=== PATIENT | female | born 2005 | race Caucasian/White ===

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

== ENCOUNTER 2025-02-15 10:57 | Outpatient (CLI) | payer OTHER, SELFPAY ==
[2025-02-15 14:57] LABS: Hematocrit 39.8 % (37.0-47.0); Hemoglobin 13.4 g/dL (12.2-16.2); Immature Granulocytes % 0.2 %; Mean Corpuscular HGB Conc 33.7 g/dL (31.8-35.4); Mean Corpuscular Hemoglobin 32.0 pg (27.0-31.2); Mean Corpuscular Volume 95.0 fl (81-99); Nucleated Red Blood Cells % 0 %; Platelet Count 329 K/mm3 (142-424); Red Blood Count 4.19 M/mm3 (4.20-5.40); Red Cell Distribution Width-SD 40.2 fL; White Blood Count 6.1 K/mm3 (4.5-13.0)
[2025-02-15 15:40] LABS: Alanine Aminotransferase 13 U/L (12-78); Albumin Level 4.3 g/dl (3.5-5.0); Albumin/Globulin Ratio 1.5 (1.1-1.8); Alkaline Phosphatase 71 U/L (38-126); Anion Gap 11.4 mEq/L (5-15); Aspartate Amino Transferase 22 U/L (14-36); Bilirubin,Total 1.0 mg/dl (0.2-1.3); Blood Urea Nitrogen 9 mg/dl (7-17); Calcium 9.8 mg/dl (8.4-10.2); Carbon Dioxide 24 mmol/L (22.0-30.0); Chloride 107 mmol/L (98-107); Creatinine,Serum 0.80 mg/dl (0.52-1.04); Estimated Glomerular Filt Rate 92 ml/min (>60); GFR (African American) 112 ML/MIN (>60); Globulin 2.8 g/dL (1.3-3.2); Glucose 90 mg/dl (74-100); Potassium 4.4 mmoL/L (3.5-5.1); Sodium 138 mmol/L (136-145); Total Protein,Serum 7.1 g/dl (6.3-8.2)
[2025-02-15 15:58] LABS: 25-OH Vitamin D, Total 30.6 ng/mL (30-100)
[2025-02-15 16:11] LABS: Thyroid Stimulating Hormone 3.71 uIU/mL (0.465-4.68)
[2025-02-15 16:31] LABS: Vitamin B12 258 pg/mL (239-931)
[2025-02-15 16:35] LABS: Hepatitis C Ab Qual. W/ RFX NEGATIVE (Negative)
[2025-02-16 05:21] LABS: Hepatitis B Surface Antigen Negative (Negative)
--- OUTSIDE RECORDS SUMMARY | 2025-02-16 12:05 | XMS_ITS | Clinical Summary ---
Author Organization [facility] Address [address] [place] [id number] Care Team Providers Care Computer Graphics Illustrator Name Role Phone Valentina Smith PA-C Primary Care Provider [phone] Source Comments [facility] is fully rolled out with thefollowing exceptions:[facility] Allergies No known active allergies Medications sertraline (ZOLOFT) 100 MG tabletIndicatio ns:Social anxiety disorder,Modera te episode of recurrent major depressive disorder Take 1.5 tablets (150 mg total) by mouth every evening. 45 tablet 1 04/26/2022 Active busPIRone (BUSPAR) 15 MG tablet Take 1 tablet (15 mg total) by mouth. Active Active Problems Problem Noted Date Diagnosed Date Suicidal behavior 03/21/2022 Moderate episode of recurrent major depressive d isorder 03/20/2022 Social anxiety disorder 09/25/2021 Carotid sinus syndrome 09/25/2021 BMI (body mass index), pedia tric, 5% to less than 85% for age 0903/30/2021 Immunizations Immunization Administration Dates Next Due Diphtheria/Tetanus/Acellular Pertussis 02/17/2009,10/24/2006,2005,2004,2005 Haemophilus B Vaccine 05/06/2006,2005,03/28 Hepatitis A Vaccine 720 Elu 03/13/2018, 8 Hepatitis B vaccine 10 mcg ( ENGERIX) pediatric 05/06/2006,2005,2005,2004 Influenza Vaccine 0.5 mL - f or patients 6 months and older 04/12/2022 Measles/Mumps/Rubella Vaccine 02/17/2009, 007 Menactra Vaccine 03/30/2021,02/23/2016 Pneumococcal 13 Conjugate 05/06/2006,09/2005,2005,2004 Pneumococcal 7 Conjugate 05/06/2006,09/2005,2005,2004 Polio Vaccine Syringe 02/17/2009, 006,2005,2004 Tdap vaccine 02/23/2016 Varicella Virus Vaccine 08/22/2017,05/06/2006 Family History Medical History Relation Name Comments High Cholesterol Maternal Grandmother Hypertension Maternal Grandmother Relation Name Status Comments Maternal Grandmother Alive Social History Tobacco Use Types Packs/Day Years Used Date Smoking Tobacco: Never Smokeless Tobacco: Never Tobacco Cessation:Counseling Given: Not Answered Alcohol Use Standard Drinks/Week Comments No 0 (1 standard drink = 0.6 oz pur e alcohol) Intimate Partner Violence Answer Date R ecorded If you are in a relationship , do you feel safe in that relationship? Yes 03/20/2022 Safe in relationship? (18 and older) Not on file 03/20/2022 Depression Answer Date Recorded Total score 16 04/12/2022 Safety and Environment Answer Date Camacho rded Do you have any concerns of physical abuse, sexual abuse, or neglect of your child? No 03/21/2022 Is an adult hurting you or your family? No 03/21/2022 Has someone ever touched you in a sexual way that was not ok with you? No 03/21/2022 Someone hurting you or family (18 and older) Not on file 03/21/2022 Historical abuse worry Not on file If you have firearms in the home, are they all in locked storage AND unloaded? Not on file 03/21/2022 Adolescent Education and Socialization Answer Date Recorded Grades Are Mostly Not on file 06/10/2022 Supplemental Education Services None 06/10/2022 Getting School Help Needed Not on file 06/10 Suspensions/Expulsions (this academic year) Not on file 06/10/2022 School Absences Not on file 06/10/2022 Peer Relationships Not on file 06/10/2022 Comments No Sex and Gender Information Value Date Recorded Sex Assigned at Not on file Legal Sex Female 10:14 AM EST Gender Identity Not on file Sexual Orientation Not on file Last Filed Vital Signs Vital Sign Reading Time Taken Comments Blood Pressure 110/64 12/16/2022 10:37 AM EDT Pulse 70 12/16/2022 10:37 AM EDT Temperature 37.2 C (98.9 F) 12/16/2022 10:37 AM EDT Respiratory Rate 18 03/21/2022 12:45 AM EDT Oxygen Saturation 98% 12/16/2022 10:37 AM EDT Inhaled Oxygen Concentration - - Weight 54.1 kg (119 lb 4.3 oz) 12/16/2022 10:37 AM EDT Height 160 cm (5' 3 ) 12/16/2022 10:37 AM EDT Body Mass Index 21.13 12/16/2022 10:37 AM EDT Plan of Treatment Health Maintenance Due Date Last Done Comments HPV IMMUNIZATION (1 - 3-dose series) 02/17/2020 MENINGOCOCCAL B VACCINE (1 of 2 - Standard) 2021 COVID-19 Vaccine (3 - season) 2024 12/30/2020, 12/09/2020 AMB SEASONAL FLU VACCINE (#1) 03/28/2025 04/12/2022 DTAP/Tdap/Td IMMUNIZATION (7 - Td or Tdap) 02/22/2026 02/23/2016, 02/17/2009, 10/24/2006, Additional history exists HEPATITIS B IMMUNIZATION Completed 006, 2005, 2005, Additional history exists HIB IMMUNIZATION Completed 05/06/2006, 08/2004, 2005 PNEUMOCOCCAL IMMUNIZATION Completed 2005, 05/06/2006, 2005, Additional history exists IPV IMMUNIZATION Completed 02/17/2009, 09/2005, 2005, Additional history exists MMR IMMUNIZATION Completed 02/17/2009, 10/24/2006 VARICELLA IMMUNIZATION Completed 08/22/2017, 2005 HEPATITIS A IMMUN (OPTIONAL 2-17 YRS) Discontinued 03/13/2018, 08/22/2017 MCV4 IMMUNIZATION Completed 03/30/2021, 02/23/2016 Respiratory Syncytial Virus (RSV) <20mo Aged Out No longer eligible based on patient's age to complete this topic Insurance [facility] on file Care Teams Computer Graphics Illustrator Relationship Specialty Start Date End Date Valentina Smith PA-C [facility] [id number] [place] [address] PCP - General [facility] 09/25/24
--- OUTSIDE RECORDS SUMMARY | 2025-02-16 12:05 | XMS_ITS | Clinical Summary ---
Author Organization [facility] Address [address] [place] [address] Phone Care Team Providers Care Team Automobile Assembler Name Role Phone Maria R Gonzalez MD Primary Care Provider [phone] Allergies No known active allergies Medications busPIRone (BUSPAR) 5 mg Oral Tablet 2 Active sertraline (ZOLOFT) 100 mg Oral Tablet Take 150 mg by mouth. 2 Active sertraline (ZOLOFT) 25 mg Oral Tablet Take by mouth. Active hydrOXYzine (VISTARIL) 25 mg Oral Capsule TAKE ONE CAPSULE BY MOUTH ONCE DAILY NEEDED FOR ANXIETY AND MAY TAKE ONE CAPSULE ONCE DAILY AT BEDTIME NEEDED FOR INSOMNIA 2 Active drospirenone-estet rol (NEXTSTELLIS) 3 mg- 14.2 mg (28) Oral TabletIndications: Encounter for initial prescription of contraceptives, unspecified contraceptive Take 1 Tablet by mouth daily. 84 Tablet 4 4 Active Active Problems No known active problems Medical History Medical History Date Comments Anxiety Depression Family History Medical History Relation Name Comments COPD Maternal Grandmother Heart Disease Maternal Grandmother Hypertension Maternal Grandmother Relation Name Status Comments Maternal Grandfather Alive Maternal Grandmother Alive Paternal Grandfather Alive Paternal Grandmother Alive Social History Tobacco Use Types Packs/Day Years Used Date Smoking Tobacco: Never Smokeless Tobacco: Never Tobacco Cessation:Counseling Given: Not Answered Alcohol Use Standard Drinks/Week Comments Never 0 (1 standard drink = 0.6 oz pur e alcohol) Sexually Active Control Partners Comments Yes Condom, Coitus interruptus, OCP Male Comments No Sex and Gender Information Value Date Recorded Sex Assigned at Not on file Legal Sex Female 9:12 PM EDT Gender Identity Not on file Sexual Orientation Not on file Obstetrics History Para Term AB IAB SAB Ectopic Multiple Livin g Live Births 0 0 0 0 0 0 0 0 0 0 0 Last Filed Vital Signs Vital Sign Reading Time Taken Comments Blood Pressure 110/80 02/02/2024 11:10 AM EDT Pulse 87 10/04/2022 2:48 PM EST Temperature 36.7 C (98.1 F) 06/18/2022 1:24 PM EST Respiratory Rate 20 06/18/2022 1:24 PM EST Oxygen Saturation 98% 10/04/2022 2:48 PM EST Inhaled Oxygen Concentration - - Weight 57.7 kg (127 lb 3.2 oz) 02/02/2024 11:10 AM EDT Height 157.5 cm (5' 2 ) 02/02/2024 11:10 AM EDT Body Mass Index 23.27 02/02/2024 11:10 AM EDT Plan of Treatment Health Maintenance Due Date Last Done Comments Annual Wellness Exam 02/17/2008 HPV (1 - 3-dose series) 02/17/2020 Meningococcal B Vaccine (1 o f 2 - Standard) 2021 COVID-19 Vaccine (3 - 2023-2 5 season) 2024 12/30/2020, 12/09/2020 Chlamydia Screening 02/01/2025 02/02/2024, Influenza Vaccine (#1) 2025 04/12/2022 DTaP/TDaP/Td (7 - Td or Tdap) 02/22/2026, 02/17/2009, 10/24/2006, Additional history exists Hepatitis B Vaccine Completed 05/06/2006, 2005, 2005, Additional history exists Pneumococcal Vaccine 0-49 Completed 2005, 2005, 2005, Additional history exists Procedures Procedure Name Priority Date/Time Associated Diagnosis Comments CHLAMYDIA/GC BY TMA Routine 02/02/2024 11:56 AM EDT Well woman exam with routine gynecological exam from Last 3 Months or Most Recently Relevant to Health Maintenance Results * CHLAMYDIA/GC BY TMA (02/02/2024 11:56 AM EDT) Chlamydia trachomatis Not Detected Not Detected 02/03/2024 1:12 AM EDT PREFERRED [facility], [place] Neisseria gonorrhoeae Not Detected Not Detected 02/03/2024 1:12 AM EDT PREFERRED [email or web address] Urine URINE SPECIMEN COLLECTION / Unknown 02/02/2024 11:56 AM EDT 02/02/2024 11:56 AM EDT Narrative PREFERRED [employer], [facility] - 02/03/2024 1:12 AM EDT Testing methodology is senior examiner mediated amplification (TMA) using the Aptima Combo 2 assay from [employer]. A negative result does not completely rule out a Chlamydia trachomatis or Neisseria gonorrhoeae infection due to potential inhibitors or levels present below the limit of detection by this assay. Results are dependent on proper collection and transport of specimen. This test is indicated for medical purposes only and should not be used for legal or forensic purposes. The performance characteristics of this assay were validated by the testing laboratory. This assay is FDA cleared to test the following specimens: clinician-collected endocervical, vaginal, male urethral swab specimens, rectal swabs, and throat/pharyngeal swabs; patient collected vaginal specimens within a clinic setting; Thin Prep Specimens in [employer] Solution; and first-stream, unpreserved male and female urine specimens. Detailed methodology is available upon request. Anika Callejas CNM [employer]BIOLOGY - GENERAL ORDER [place] Final Result PREFERRED [email or web address] [address] [facility] , [place] [place] [address] from Last 3 Months or Most Recently Relevant to Health Maintenance Insurance [facility] [employer] [id number] [place] [id number] [facility] [employer] [id number] Care Teams Team Automobile Assembler Relationship Specialty Start Date End Date Maria R Gonzalez MD PCP - General Pediatrics 12/18/11
== END 2025-02-15 23:59 | disposition home or self-care (01) ==
LOC: LAB.DROPOF 02-16 12:04
PROVIDERS: PCP Nurse Practitioner; Visit Provider Nurse Practitioner
DX: E55.9 Vitamin D deficiency, unspecified (principal); F41.8 Other specified anxiety disorders; E53.8 Deficiency of other specified B group vitamins; Z11.59 Encounter for screening for other viral diseases
CPT/HCPCS: 80053; 82306; 82607; 84443; 85025; 86803; 87340; 87389